=== PATIENT | male | born 1980 ===

== ENCOUNTER 2023-01-02 05:40 | Day surgery (SDC) | payer OTHER ==
[~2023-01-02] VITALS: Ht 177.8 cm; Wt 63.5 kg
== END 2023-01-02 11:35 | disposition home or self-care (01) ==
LOC: CIR.AMB 05:40
PROVIDERS: ATTEND Orthopaedic Surgery Hand Surgery
DX: G56.02 Carpal tunnel syndrome, left upper limb (principal); E11.9 Type 2 diabetes mellitus without complications; E78.00 Pure hypercholesterolemia, unspecified; Z20.822 Contact with and (suspected) exposure to COVID-19; I10 Essential (primary) hypertension

== ENCOUNTER 2024-06-03 06:07 | Day surgery (SDC) | payer OTHER ==
[2024-05-29 08:39] LABS: URINE WBC 3.2 uL (0.0-23.2)
[2024-05-29 08:49] LABS: HEMATOCRIT 43.3 % (39.0-48.0); HEMOGLOBIN 15.5 g/dL (13-16.00); MEAN CELL VOLUME 97.3 fL (80.0-100.00); MEAN CORPUSCULAR HEMOGLOBIN 34.7 pg (27.00-32.0); MEAN CORPUSCULAR HGB CONC 35.7 g/dl (32.0-36.0); PLATELET COUNT 225 K/uL (150-450); RED BLOOD COUNT 4.45 M/uL (4.00-6.00); RED CELL DISTRIBUTION WIDTH 12.5 % (11.5-14.5)
[2024-05-29 08:50] VITALS: BP 130/74
[2024-05-29 08:51] LABS: URINE BILIRRUBIN NEGATIVE (NEGATIVE); URINE BLOOD NEGATIVE; URINE GLUCOSE NEGATIVE (NEGATIVE); URINE KETONE NEGATIVE (NEGATIVE); URINE LEUKOCYTE NEGATIVE; URINE NITRATE NEGATIVE; URINE PROTEIN NEGATIVE (NEGATIVE); URINE UROBILINOGEN 0.2 E.U./dl
[2024-05-29 08:53] LABS: URINE APPEARANCE CLEAR; URINE COLOR YELLOW
[2024-05-29 08:58] LABS: INR 1.05; PARTIAL THROMBOPLASTIN TIME 29.9 SECONDS (22.0-34.0); PROTHROMBIN TIME 11.4 SECONDS (9.0-11.5)
[2024-05-29 09:02] LABS: ALBUMIN 4.1 gm/dL (3.4-5.0); BILIRUBIN TOTAL 0.61 mg/dL (0.3-1.2); CALCIUM 9.7 mg/dL (8.5-10.1); CREATININE SERUM 1.1 mg/dL (0.70-1.30); GFR 72.39; GLOBULINA 3.7 G/DL (2.4-3.5); POTASSIUM 4.74 mEq/L (3.5-5.1); TOTAL PROTEIN 7.8 gm/dL (6.4-8.2)
[2024-05-29 09:04] LABS: URINE BACTERIA 1.2 uL (0.0-1933); URINE EPITHELIAL CELLS 0.3 uL (0.0-38.8)
[~2024-06-03 06:07] MED LIST: ATACAND16 MG PO; CRESTOR40 MG PO; METFORMIN HCL500 M3 PO
[2024-06-03] MEDS ORDERED: CEFAZOLIN SODIUM 1,000 MG VIAL ONE (08:22)
[2024-06-03] MEDS ORDERED: BUPIVACAINE HCL/Mpf 0.5% 10ML VIAL ONE ×2 (08:57→08:58)
[2024-06-03] MEDS ORDERED: MORPHINE SULFATE 4 MG/ML VIAL IV ONE (10:10)
== END 2024-06-03 11:10 | disposition home or self-care (01) ==
LOC: CIR.AMB 06:07
PROVIDERS: ATTEND Orthopaedic Surgery Hand Surgery
DX: G56.01 Carpal tunnel syndrome, right upper limb (principal); Z91.030 Bee allergy status; E11.9 Type 2 diabetes mellitus without complications; E78.00 Pure hypercholesterolemia, unspecified; I10 Essential (primary) hypertension; E66.9 Obesity, unspecified